=== PATIENT | male | born 1970 | race Caucasian/White ===

== ENCOUNTER 2018-11-13 07:34 | Outpatient (CLI) | payer OTHER ==
[~2018-11-13 07:34] MED LIST: KETO10TA2 PO; NASONEX17 GM NS; ZITHROMAX500 MG PO
== END 2018-11-13 08:00 | disposition home or self-care (01) ==
LOC: MRI 07:34
DX: N20.0 Calculus of kidney (principal); R10.84 Generalized abdominal pain; E06.5 Other chronic thyroiditis; R79.89 Other specified abnormal findings of blood chemistry; M54.5 Low back pain
CPT/HCPCS: 72148